=== PATIENT | female | born 1980 | race Caucasian/White ===

== ENCOUNTER 2022-11-29 19:57 | Emergency (ER) | payer OTHER, SELFPAY ==
--- NOTE | ~2022-11-29 | CT_ITS ---
CT Abdomen and Pelvis with contrast. History: Abdominal pain. Spiral CT of the abdomen and pelvis was performed after the administration of intravenous contrast. 1 00 cc of Omnipaque 350 was administered intravenously without complication. Dose reduction technique was used on this scan by utilizing automated exposure control and iterative reconstruction technique. The dose-length product (DLP) was 477.90 mGy-cm. Findings: Scans through the lung bases demonstrate mild atelectatic change. 1.4 cm hypodense area present in the caudate region of liver (axial image 61), indeterminate. The spl een, pancreas, gallbladder, adrenals and kidneys are within normal limits. No evidence of aortic ane urysm. No lymphadenopathy is seen. There is no evidence of bowel obstruction. There is wall thickening and of pericolonic inflammatory c hange at the proximal sigmoid colon, most likely acute focal diverticulitis. No abscess or free air.. Images through the pelvis were performed. Urinary bladder unremarkable. Probable small uterine fibroi ds. No other adnexal mass seen. Trace free fluid noted.. Impression: Acute sigmoid diverticulitis. No abscess or free air. Indeterminate 1.4 cm hypodense area near the caudate region of the liver. Nonemergent pre and postcon trast MR should be considered to attempt to better assess. Probable small uterine fibroids. Reviewed, dictated and finalized at [facility]. [employer] COMPLIANCE MANAGER Impression: Acute sigmoid diverticulitis. No abscess or free air. Indeterminate 1.4 cm hypodense area near the caudate region of the liver. Nonem ergent pre and postcontrast MR should be considered to attempt to better assess . Probable small uterine fibroids.
[2022-11-29 19:59] VITALS: BP 143/84; PULSE 95; RESP 14; TEMP 36.7; O2SAT 99
--- NOTE | 2022-11-30 00:04 | ED.ABDPAIN ---
HPI - Abdominal Pain General Chief Complaint: Abdominal Pain <Elaine Bajwa PA-C - Last Filed: 11/30/22 03:44> Stated Complaint: abd pain <Elaine Bajwa PA-C - Last Filed: 11/30/22 03:44> Time Seen by Provider: 11/29/22 23:38 <Elaine Bajwa PA-C - Last Filed: 11/30/22 03:44> History of Present Illness HPI narrative: 42-year-old female reports for generalized abdominal pain, worse on the left lower quadrant, and diarrhea x2 days. Patient's reports 1 episode of mucus and bright red blood tinged diarrhea yesterday, and one episode today. She reports multiple normal bowel movements between, without diarrhea or blood. She reports she has never had this happen before. Reports a history of IBS when she was younger, but otherwise no GI history. She denies fever, body aches, chills, chest pain, shortness of breath, nausea, back pain. She denies urinary frequency, urgency. Denies pain with defecation. She has never had a colonoscopy. Patient states she has been taking ibuprofen with some relief of abdominal pain. <Elaine Bajwa PA-C - Last Filed: 11/30/22 03:44> Related Data Allergies/Adverse Reactions: Allergies Allergy/AdvReac Type Severity Reaction Status Date / Time No Known Allergies Allergy Verified 11/29/22 20:09 <Elaine Bajwa PA-C - Last Filed: 11/30/22 03:44> Review of Systems Review of Systems: CONSTITUTIONAL: Denies fever, chills EYES: Denies visual changes, redness, or discharge. ENT: Denies rhinorrhea, congestion, sore throat, or otalgia. CARDIOVASCULAR: Denies chest pain, palpitations, or edema. RESPIRATORY: Denies cough or dyspnea. GASTROINTESTINAL: See HPI GENITOURINARY: Denies dysuria or hematuria. SKIN: Denies rash or itching. MUSCULOSKELETAL: Denies back pain, joint pain, or myalgia. NEUROLOGIC: Denies headache, numbness, dizziness, or weakness. PSYCHIATRIC: Denies anxiety or depression. <MARIANELA Montgomery Last Filed: 11/30/22 03:44> Exam Narrative: GENERAL: Well-appearing, well-nourished, and in no acute distress. HEAD: Normocephalic, atraumatic. EYES: PERRLA and EOMI. ENT: Nares clear, no rhinorrhea or epistaxis. Mucous membranes moist. Oropharynx without tonsillar hypertrophy exudate or other lesions. NECK: Supple. No adenopathy or masses. CHEST: Clear to auscultation. No respiratory distress. No wheezes rales or rhonchi HEART: Regular rate and rhythm. No murmur heard. Normal peripheral pulses. ABDOMEN: Soft, normal active bowel sounds. Voluntary guarding and tenderness to left lower quadrant, right lower quadrant, suprapubic region. No rigidity, masses appreciated. Rectal exam performed showing a anal fissure in the posterior midline. Not actively bleeding. Hemoccult positive. No gross blood appreciated on exam. EXTREMITIES: Normal range of motion. No edema. SKIN: Warm, dry, no rash. NEURO: No focal deficits. Alert and oriented x3. PSYCH: Normal mood and affect. <Elaine Bajwa PA-C - Last Filed: 11/30/22 03:44> Course Course Emergency Course: 0343: Awaiting CT scan. Signed out to Dr. Grullon who is updated on patient case and condition - CAROL Hebert <Elaine Bajwa PA-C - Last Filed: 11/30/22 03:44> SPEECH AND LANGUAGE SPECIALIST/PA Physician Supervision I have personally seen the patient and provided [id number] interaction with the patient. Patient is a 42-year-old female who presents emergency department with left sided abdominal pain and blood in her stool. CT scan shows evidence of acute diverticulitis The patient will be started on Augmentin and patient will be given a prescription for [place]. <Kendell Grullon MD - Last Filed: 11/30/22 04:09> Vital Signs Vital signs: Vital Signs Temperature 36.7 C 11/29/22 19:59 Pulse Rate 95 11/29/22 19:59 Respiratory Rate 14 11/29/22 19:59 Blood Pressure 143/84 H 11/29/22 19:59 Pulse Oximetry 99 11/29/22 19:59 Oxygen Delivery Room Air 11/29/22
[2022-11-30] MEDS: HYDROcodone/acetaminophen (*CRX) 10-325 MG TABLET 1 TAB PO (00:14)
[2022-11-30] MEDS: SODIUM CHLORIDE 0.9% IV 1,000 ML 999 ML IV CONT (00:15)
[2022-11-30 00:34] LABS: Appearance Urine Clear (Clear); Bilirubin Urine Negative (Negative); Blood Urine Negative (Negative); Color Urine Yellow (Yellow); Glucose Urine UA Negative (Negative); Ketones Urine Negative (Negative); Leukocyte Esterase Ur Negative LEU/UL (Negative); Nitrate Urine Negative (Negative); Protein Urine Negative (Negative); Specific Grav Ur <= 1.005 (1.001-1.035); Urobilinogen Urine 0.2 mg/dL (<2.0); pH Urine 6.5 (5.0-9.0)
[2022-11-30 00:35] LABS: Alanine Aminotransferase 20 U/L (6-35); Alkaline Phosphatase 49 U/L (38-126); Anion Gap 2 mmol/L (8-16); Aspartate Amino Transferase 25 U/L (14-36); Bilirubin,Total 0.4 mg/dL (0.2-1.3); Blood Urea Nitrogen 13 mg/dL (7-17); Calcium 8.2 mg/dL (8.4-10.2); Carbon Dioxide 29 mmol/L (22-30); Chloride 106 mmol/L (98-107); Estimated CRCL calculation 110 ml/min; Estimated Glomerular Filt Rate > 60; Glucose 84 mg/dL (65-110); Lipase 68 U/L (23-300); Potassium 3.3 mmol/L (3.4-5.0); Sodium 137 mmol/L (137-145)
[2022-11-30 00:37] LABS: Basophils Percent Auto 0.3 % (0.2-1.2); Eosinophils Absolute Auto 0.2 K/mm3 (0-0.3); Eosinophils Percent Auto 2.1 % (0-4.4); Hematocrit 40.1 % (37.0-47.0); Hemoglobin 13.1 g/dL (12.0-15.0); Immature Granulocyte Absolute 0.03 K/mm3 (0.00-0.031); Immature Granulocyte Percent A 0.3 % (0-0.5); Lymphocytes Absolute Auto 1.66 K/mm3 (0.9-3.2); Lymphocytes Percent Auto 18.7 % (18.3-44.2); Mean Corpuscular HGB Conc 32.7 g/dl (32-36); Mean Corpuscular Hemoglobin 29.8 pg (26-34); Mean Corpuscular Volume 91.3 fl (80-100); Monocytes Absolute Auto 0.7 K/mm3 (0.1-0.6); Monocytes Percent Auto 7.8 % (2.6-8.5); Neutrophils Absolute Auto 6.3 K/mm3 (1.3-6.7); Neutrophils Percent Auto 70.8 % (45.5-73.1); Platelet Count Result 259 k/mm3 (150-375); Red Blood Count 4.39 M/mm3 (4.2-5.4); Red Cell Distribution Width 13.2 % (11.5-14.5); White Blood Count 8.9 K/mm3 (4.5-10.0)
[2022-11-30 00:38] LABS: Bacteria Urine Trace /hpf; Mucus Urine Rare /lpf; Prothrombin Time 13.1 Seconds (11.1-14.7); RBC Urine 0-2 /hpf (0-2); Squamous Epithelial Cell Urine Rare /hpf (Few); WBC Urine 0-3 /hpf
[2022-11-30 00:39] LABS: Add Urine Microscopic? NO; Partial Thromboplastin Time 27.9 SECONDS (22.3-36.8)
[2022-11-30 01:07] VITALS: BP 113/69; PULSE 78; RESP 18; TEMP 36.6; O2SAT 99
[2022-11-30 03:15] VITALS: BP 111/69; PULSE 89; RESP 18; TEMP 36.6; O2SAT 99
--- NOTE | 2022-11-30 03:15 | PC.NURSE ---
Updated pt on plan of care, NAD, respirations even and unlabored, skin warm/dry.
[2022-11-30 03:26] LABS: Magnesium 1.9 mg/dL (1.6-2.3)
[2022-11-30] MEDS: AMOXICILLIN/CLAVULANATE K 875-125 MG TAB 1 TABLET PO (04:37)
[2022-11-30] MEDS: HYDROcodone/acetaminophen (*CRX) 5-325 MG TABLET 1 TAB PO (04:57)
[2022-11-30 05:08] VITALS: BP 118/79; PULSE 70; RESP 18; TEMP 36.6; O2SAT 99
== END 2022-11-30 05:09 | disposition home or self-care (01) ==
PROVIDERS: Emergency Provider Physician Assistant
DX: K57.32 Diverticulitis of large intestine without perforation or abscess without bleeding (principal)
CPT/HCPCS: 36415; 74177; 80053; 81003; 81025; 83690; 83735; 85025; 85610; 85730; 96360; 96361; 99284; A9270; J7030; Q9967